=== PATIENT | female | born 1960 ===

== ENCOUNTER 2018-01-09 11:37 | Observation (INO) | payer MEDICARE, MEDICAID ==
[~2018-01-09] VITALS: Ht 167.6 cm; Wt 77.2 kg
[~2018-01-09 11:37] MED LIST: AMOX1TAB64 PO; CALC-534 PO; DIAZ5TAB4 PO; DIVA125T2 PO; DULO30CA2 PO; DULO60CA7 PO; FLUTICASONE NAS; HYDR60CR2 TP; MOME13HF INH; MULT-516 PO; OMEP-110 PO; OXYC5CAP2 PO; TRAZ100T15 PO; ZIPR20CA2 PO; ZIPR60CA2 PO; ZIPR60CA3 PO
[2018-01-09 13:05] LABS: BASOPHILS # (AUTO) 0.04 x10^3/uL (0-0.1); BASOPHILS % (AUTO) 1 % (0-1); EOSINOPHILS # (AUTO) 0.06 x10^3/uL (0-0.4); EOSINOPHILS % (AUTO) 1 % (1-7); LYMPHOCYTES % (AUTO) 31 % (22-44); MD NO; MEAN CORPUSCULAR HEMOGLOBIN 31.4 pg (27.0-34.8); MEAN CORPUSCULAR HGB CONC 33.5 g/dL (32.4-35.8); MEAN CORPUSCULAR VOLUME 93.6 fL (80-100); MONOCYTES # (AUTO) 0.65 x10^3/uL (0.2-0.8); MONOCYTES % (AUTO) 9 % (2-9); NEUTROPHILS # (AUTO) 4.42 x10^3/uL (1.8-6.8); NEUTROPHILS % (AUTO) 59 % (42-75); PLATELET COUNT 204 x10^3/uL (130-400); RED BLOOD COUNT 4.73 x10^6/uL (3.82-5.3); RED CELL DISTRIBUTION WIDTH 12.8 % (9.6-15.2)
[2018-01-09 13:07] LABS: ALANINE AMINOTRANSFERASE 19 U/L (12-78); ALBUMIN 3.4 g/dL (3.4-5.0); ANION GAP 5 mmol/L (5-15); CALCIUM 8.6 mg/dL (8.5-10.1); CHLORIDE 106 mmol/L (98-107); CREATININE 0.63 mg/dL (0.55-1.02)
[2018-01-09 13:16] LABS: ALKALINE PHOSPHATASE 82 U/L (45-117); BILIRUBIN,TOTAL 0.4 mg/dL (0.2-1.0); SALICYLATE LEVEL 2.6 mg/dL (2.8-20.0); TOTAL PROTEIN 7.1 g/dL (6.4-8.2)
[2018-01-09 13:18] LABS: ACETAMINOPHEN < 2 mcg/mL (10-30)
[2018-01-09 13:19] LABS: AMPHETAMINE SCREEN, URINE Positive (Negative); BARBITURATE SCREEN, URINE Negative (Negative); BENZODIAZEPINE SCREEN, URINE Negative (Negative); CANNABINOID SCREEN, URINE Negative (Negative); COCAINE SCREEN, URINE Negative (Negative); METHADONE SCREEN, URINE Negative (Negative); OPIATE SCREEN, URINE Negative (Negative)
[2018-01-09] MEDS ORDERED: DESV50TA PO (13:47)
[2018-01-09] MEDS ORDERED: ZALE10CA43 PO (13:47)
[2018-01-09] MEDS ORDERED: LORA10TA62 PO (13:47)
[2018-01-09] MEDS ORDERED: POLYETHYLENE GLYCOL 17 GM PACKET PO PRN (15:30)
[2018-01-09] MEDS ORDERED: GUAIFENESIN/DM 200-20MG, 10ML UDC PO PRN (15:30)
[2018-01-09] MEDS ORDERED: ONDANSETRON ODT 4 MG PO PRN (15:30)
[2018-01-09 16:43] VITALS: BP 107/71
[2018-01-09] MEDS: ENOXAPARIN 40 MG/0.4 ML SQ SCH (17:00)
[2018-01-09 19:08] VITALS: BP 100/65
[2018-01-09] MEDS ORDERED: METF10003 PO (19:43)
[2018-01-10 00:57] VITALS: BP 101/68
[2018-01-10 06:19] LABS: BASOPHILS # (AUTO) 0.07 x10^3/uL (0-0.1); BASOPHILS % (AUTO) 1 % (0-1); EOSINOPHILS # (AUTO) 0.16 x10^3/uL (0-0.4); EOSINOPHILS % (AUTO) 2 % (1-7); LYMPHOCYTES # (AUTO) 3.04 x10^3/uL (1-3.4); LYMPHOCYTES % (AUTO) 35 % (22-44); MD NO; MEAN CORPUSCULAR HEMOGLOBIN 31.8 pg (27.0-34.8); MEAN CORPUSCULAR HGB CONC 33.7 g/dL (32.4-35.8); MEAN CORPUSCULAR VOLUME 94.3 fL (80-100); MEAN PLATELET VOLUME 7.9 fL (7.4-10.4); MONOCYTES # (AUTO) 0.75 x10^3/uL (0.2-0.8); MONOCYTES % (AUTO) 9 % (2-9); NEUTROPHILS # (AUTO) 4.74 x10^3/uL (1.8-6.8); NEUTROPHILS % (AUTO) 54 % (42-75); PLATELET COUNT 209 x10^3/uL (130-400); RED CELL DISTRIBUTION WIDTH 12.8 % (9.6-15.2)
[2018-01-10 06:29] LABS: ANION GAP 6 mmol/L (5-15); CALCIUM 8.7 mg/dL (8.5-10.1); CHLORIDE 109 mmol/L (98-107); CREATININE 0.57 mg/dL (0.55-1.02)
[2018-01-10 06:30] LABS: ALANINE AMINOTRANSFERASE 19 U/L (12-78); ALBUMIN 3.2 g/dL (3.4-5.0)
[2018-01-10 06:32] LABS: ALKALINE PHOSPHATASE 79 U/L (45-117); BILIRUBIN,TOTAL 0.6 mg/dL (0.2-1.0); TOTAL PROTEIN 7.1 g/dL (6.4-8.2)
[2018-01-10 08:28] VITALS: BP 94/56
[2018-01-10] MEDS: TEMPLATE NON-FORMULARY MED. (Desvenlafaxine Succinate** (Pristiq Er**) 50 MG) PO SCH (09:00)
[2018-01-10] MEDS: LORATADINE 10 MG TABLET PO SCH (09:57)
[2018-01-10] MEDS: SENNA/DOCUSATE TABLET PO SCH (09:57)
[2018-01-10] MEDS ORDERED: OMEPRAZOLE 20 MG CAPSULE.DR PO ONE (14:00)
[2018-01-10 14:30] VITALS: BP 101/63
[2018-01-10] MEDS: ENOXAPARIN 40 MG/0.4 ML SQ SCH (17:00)
[2018-01-10 19:40] VITALS: BP 92/57
[2018-01-11 02:42] VITALS: BP 93/61
[2018-01-11] MEDS ORDERED: OMEPRAZOLE 20 MG CAPSULE.DR PO SCH (07:30)
[2018-01-11 08:25] VITALS: BP 101/63
[2018-01-11] MEDS: SENNA/DOCUSATE TABLET PO SCH (09:00)
[2018-01-11] MEDS: TEMPLATE NON-FORMULARY MED. (Desvenlafaxine Succinate** (Pristiq Er**) 50 MG) PO SCH (09:00)
[2018-01-11] MEDS: LORATADINE 10 MG TABLET PO SCH (10:33)
[2018-01-11 14:30] VITALS: BP 101/55
[2018-01-11] MEDS ORDERED: METF850T PO (16:04)
[2018-01-11] MEDS ORDERED: metFORMIN 850 MG TABLET PO SCH (17:00)
== END 2018-01-11 16:21 ==
LOC: ED 13:25 → EDIP 13:26 → ED 13:36 → 3NE 16:41
PROVIDERS: ADMIT Internal Medicine; ATTEND Internal Medicine
DX: R45.851 Suicidal ideations (principal); E11.65 Type 2 diabetes mellitus with hyperglycemia; F15.10 Other stimulant abuse, uncomplicated; F43.10 Post-traumatic stress disorder, unspecified; F32.9 Major depressive disorder, single episode, unspecified; J44.9 Chronic obstructive pulmonary disease, unspecified; J96.10 Chronic respiratory failure, unspecified whether with hypoxia or hypercapnia; Z87.891 Personal history of nicotine dependence; Z91.5 Personal history of self-harm; Z79.84 Long term (current) use of oral hypoglycemic drugs
CPT/HCPCS: 36415; 71045; 80053; 80307; 80329; 83735; 84100; 85025; 93005; 99285; G0378; G0480

== ENCOUNTER 2019-12-29 12:46 | Emergency (ER) | payer MEDICARE, MEDICAID ==
[~2019-12-29] VITALS: Ht 167.6 cm; Wt 75.0 kg
[~2019-12-29 12:46] MED LIST changes: +DESV50TA PO; +LORA10TA62 PO; +METF10007 PO; +METF850T PO; +TRAZ-175 PO; -TRAZ100T15 PO; +ZALE10CA43 PO
[2019-12-29 12:49] VITALS: BP 128/74
--- NOTE | 2019-12-29 13:21 | NUR ---
PT TO ROOM FROM LOBBY
[2019-12-29] MEDS ORDERED: IBUPROFEN 800 MG TABLET ONE (13:33)
--- NOTE | 2019-12-29 13:57 | NUR ---
PT CARE RESPONSIBILITIES ASSUMED. PT JOVAN ANY NEEDS AT THIS TIME, CALL LIGHT IN REACH.
[2019-12-29] MEDS ORDERED: IBUPROFEN 800 MG TABLET PO ONE (14:00)
[2019-12-29] MEDS ORDERED: IBUPROFEN 200 MG TABLET PO ONE (14:00)
--- NOTE | 2019-12-29 14:32 | NUR ---
pt up to restroom via wheelchair and one person assist. pt able to transfer in and out of wheelchair, and walk independently, but does not want to walk the length of the [place]gett. denies any further needs.
== END 2019-12-29 16:07 | disposition home or self-care (01) ==
LOC: ED 15:30
DX: S16.1XXA Strain of muscle, fascia and tendon at neck level, initial encounter (principal); S20.219A Contusion of unspecified front wall of thorax, initial encounter; E11.9 Type 2 diabetes mellitus without complications; V49.49XA Driver injured in collision with other motor vehicles in traffic accident, initial encounter; Z90.710 Acquired absence of both cervix and uterus; Y93.89 Activity, other specified; Y92.410 Unspecified street and highway as the place of occurrence of the external cause; Y99.8 Other external cause status
CPT/HCPCS: 71250; 72125; 99285

== ENCOUNTER 2020-11-22 12:43 | Emergency (ER) | payer MEDICAID, MEDICARE ==
[~2020-11-22 12:43] MED LIST changes: +LORA-59 PO; -LORA10TA62 PO
--- NOTE | 2020-11-22 13:01 | NUR ---
NIL X1
--- NOTE | 2020-11-22 13:30 | NUR ---
NIL X2
--- NOTE | 2020-11-22 15:00 | NUR ---
NIL X 3, PATIENT LEFT
== END 2020-11-22 15:06 | disposition left against medical advice (07) ==
LOC: ED 14:30
DX: E86.0 Dehydration (principal); Z53.21 Procedure and treatment not carried out due to patient leaving prior to being seen by health care provider

== ENCOUNTER 2020-12-07 04:49 | Inpatient (IN) | payer MEDICARE, MEDICAID ==
[~2020-12-07] VITALS: Ht 167.6 cm; Wt 68.4 kg
[2020-12-07] MEDS ORDERED: DOCUSATE 100 MG CAPSULE PO PRN (05:30)
[2020-12-07] MEDS ORDERED: ACETAMINOPHEN 325 MG TABLET PO PRN (05:30)
[2020-12-07] MEDS ORDERED: ONDANSETRON ODT 4 MG PO PRN (05:30)
[2020-12-07] MEDS ORDERED: POLYETHYLENE GLYCOL 17 GM PACKET PO PRN (05:30)
[2020-12-07] MEDS ORDERED: BISACODYL 10 MG SUPP PR PRN (05:30)
[2020-12-07] MEDS ORDERED: PLEASE ENTER HEIGHT AND WEIGHT MC SCH (09:00)
[2020-12-07 09:15] VITALS: BP 113/78
[2020-12-07 09:30] VITALS: BP 113/78
[2020-12-07] MEDS ORDERED: DIAZ10TA4 PO (10:57)
[2020-12-07 11:24] LABS: CHOL/HDL RATIO 2.7; FREE T4 (FREE THYROXINE) 0.87 ng/dL (0.76-1.46); LDL/HDL RATIO 1.1 (0.5-3.0)
[2020-12-07] MEDS ORDERED: NICOTINE 7 MG/24 HR PATCH.TD24 TD SCH (19:00)
[2020-12-07 19:19] VITALS: BP 104/68
[2020-12-07 21:35] VITALS: BP 97/64
[2020-12-07 21:37] VITALS: BP 100/65
[2020-12-07 22:36] VITALS: BP 104/66
[2020-12-07] MEDS ORDERED: ALBUTEROL SULFATE 2.5 MG/3 ML NPPB PRN (23:00)
[2020-12-08 05:51] LABS: MEAN CORPUSCULAR HGB CONC 33.8 g/dL (32.4-35.8); MEAN PLATELET VOLUME 7.7 fL (7.4-10.4); PLATELET COUNT 201 x10^3/uL (130-400); RED BLOOD COUNT 4.94 x10^6/uL (3.82-5.3); RED CELL DISTRIBUTION WIDTH 13.5 % (9.6-15.2)
[2020-12-08 05:57] LABS: INTERNATIONAL NORMALIZED RATIO 0.97 (0.93-1.1); PROTHROMBIN TIME 10.4 Seconds (9.6-11.5)
[2020-12-08 06:00] LABS: ALBUMIN 3.3 g/dL (3.4-5.0); ANION GAP 9 mmol/L (5-15); CALCIUM 9.1 mg/dL (8.5-10.1); CHLORIDE 110 mmol/L (98-107)
[2020-12-08 06:05] LABS: ALANINE AMINOTRANSFERASE 17 U/L (12-78); ALKALINE PHOSPHATASE 109 U/L (45-117); BILIRUBIN,TOTAL 0.4 mg/dL (0.2-1.0); CHOLESTEROL, TOTAL 210 mg/dL (140-239); CREATININE 0.45 mg/dL (0.55-1.02); HDL CHOL % 34 % (28-40); HDL CHOLESTEROL (DIRECT) 71 mg/dL (40-60); LDL CHOLESTEROL,CALCULATED 106 mg/dL (54-169); LDL/HDL RATIO 1.5 (0.5-3.0); TOTAL PROTEIN 7.3 g/dL (6.4-8.2); TRIGLYCERIDES 166 mg/dL (50-200); VLDL CHOLESTEROL 33 mg/dL (0-25)
[2020-12-08 06:45] LABS: BASOS#(MANUAL) 0.14 x10^3/uL (0-0.1); BASOS% (MANUAL) 2 % (0-1); EOS#(MANUAL) 0.21 x10^3/uL (0.0-0.4); EOS% (MANUAL) 3 % (1-7); LYMPH#(MANUAL) 3.52 x10^3/uL (1-3.4); LYMPHS% (MANUAL) 51 % (22-44); MONOS#(MANUAL) 0.35 x10^3/uL (0.3-2.7); MONOS% (MANUAL) 5 % (2-9); REACTIVE LYMPHS # (MANUAL) 0.07 x10^3/uL (0-0); REACTIVE LYMPHS % (MANUAL) 1 % (0-0); SEG#(MANUAL) 2.62 x10^3/uL (1.8-6.8); SEGS% (MANUAL) 38 % (42-75)
[2020-12-08 06:46] LABS: <PLATELET ESTIMATE> ADEQUATE; <PLT MORPHOLOGY> NORMAL PLT MORPH; <RBC MORPHOLOGY> NORMAL
[2020-12-08 07:30] VITALS: BP 123/77
[2020-12-08] MEDS: NICOTINE 7 MG/24 HR PATCH.TD24 TD SCH (08:56)
[2020-12-08] MEDS ORDERED: BUPROPION SR 150 MG TABLET PO SCH (09:00)
[2020-12-08 15:42] LABS: ANION GAP 8 mmol/L (5-15); CALCIUM 9.4 mg/dL (8.5-10.1); CHLORIDE 105 mmol/L (98-107); CREATININE 0.64 mg/dL (0.55-1.02)
[2020-12-08] MEDS: DULOXETINE 30 MG CAPSULE.DR PO SCH (16:13)
[2020-12-08 19:15] VITALS: BP 105/70
[2020-12-08 21:25] LABS: MICROSCOPIC AUTO
[2020-12-09 07:11] VITALS: BP 113/71
[2020-12-09] MEDS: DULOXETINE 30 MG CAPSULE.DR PO SCH (08:38)
[2020-12-09] MEDS: NICOTINE 7 MG/24 HR PATCH.TD24 TD SCH (08:38)
[2020-12-09 19:03] VITALS: BP 101/65
[2020-12-10 07:32] VITALS: BP 103/69
[2020-12-10] MEDS: DULOXETINE 30 MG CAPSULE.DR PO SCH (08:39)
[2020-12-10] MEDS: NICOTINE 7 MG/24 HR PATCH.TD24 TD SCH (08:40)
[2020-12-10] MEDS: CEFDINIR 300 MG CAPSULE PO SCH ×2 (14:21→20:11)
[2020-12-10 19:35] VITALS: BP 100/63
[2020-12-11 07:36] VITALS: BP 99/61
[2020-12-11] MEDS: CEFDINIR 300 MG CAPSULE PO SCH ×2 (08:37→20:17)
[2020-12-11] MEDS: DULOXETINE 30 MG CAPSULE.DR PO SCH (08:37)
[2020-12-11] MEDS: NICOTINE 7 MG/24 HR PATCH.TD24 TD SCH (08:37)
[2020-12-11 20:02] VITALS: BP 101/64
[2020-12-12 07:45] VITALS: BP 115/67
[2020-12-12] MEDS: CEFDINIR 300 MG CAPSULE PO SCH ×2 (09:13→20:41)
[2020-12-12] MEDS: DULOXETINE 30 MG CAPSULE.DR PO SCH (09:13)
[2020-12-12] MEDS: NICOTINE 7 MG/24 HR PATCH.TD24 TD SCH (09:13)
[2020-12-12 19:31] VITALS: BP 113/74
[2020-12-13 07:37] VITALS: BP 102/65
[2020-12-13] MEDS: NICOTINE 7 MG/24 HR PATCH.TD24 TD SCH (08:31)
[2020-12-13] MEDS: DULOXETINE 30 MG CAPSULE.DR PO SCH (08:32)
[2020-12-13] MEDS: CEFDINIR 300 MG CAPSULE PO SCH (08:32)
[2020-12-13] MEDS ORDERED: DULO30CA2 PO (13:52)
[2020-12-13] MEDS ORDERED: NICO-485 TD (13:52)
[2020-12-13] MEDS ORDERED: CEFD300C37 PO (13:52)
== END 2020-12-13 15:15 | disposition home or self-care (01) | DRG 885 ==
LOC: 3E 08:49
PROVIDERS: ADMIT Psychiatry & Neurology Psychosomatic Medicine; ATTEND Psychiatry & Neurology Psychosomatic Medicine
DX: F31.30 Bipolar disorder, current episode depressed, mild or moderate severity, unspecified (principal); E87.2 Acidosis; R45.851 Suicidal ideations; F60.3 Borderline personality disorder; J44.9 Chronic obstructive pulmonary disease, unspecified; E11.9 Type 2 diabetes mellitus without complications; F41.1 Generalized anxiety disorder; F43.10 Post-traumatic stress disorder, unspecified; G89.29 Other chronic pain; F19.10 Other psychoactive substance abuse, uncomplicated; F17.210 Nicotine dependence, cigarettes, uncomplicated; F15.10 Other stimulant abuse, uncomplicated; M19.90 Unspecified osteoarthritis, unspecified site; Z79.899 Other long term (current) drug therapy; Z91.5 Personal history of self-harm; Z90.722 Acquired absence of ovaries, bilateral; Z88.5 Allergy status to narcotic agent; Z88.8 Allergy status to other drugs, medicaments and biological substances; Z83.3 Family history of diabetes mellitus; Z80.1 Family history of malignant neoplasm of trachea, bronchus and lung
CPT/HCPCS: 36415; 71045; 80048; 80053; 80061; 81001; 82607; 82962; 83735; 84100; 84439; 84443; 85025; 85610; 87077; 87086; 87186; 93005